=== PATIENT | male | born 1985 | race Caucasian/White ===

== ENCOUNTER 2025-03-25 14:53 | Emergency (ER) | payer SELFPAY ==
[~2025-03-25] VITALS: Ht 167.6 cm; Wt 69.0 kg
[2025-03-25 14:57] VITALS: O2SAT 98
[2025-03-25 15:54] LABS: BASOPHILS % 0.8 % (0.0-2.0); EOSINOPHILS % 1.2 % (0.0-5.0); HEMATOCRIT. 40.4 % (42.0-52.0); HEMOGLOBIN. 13.3 g/dL (14.0-18.0); LYMPHOCYTES % 35.0 % (20.0-50.0); MEAN PLATELET VOLUME 8.6 fl (7.4-10.4); MONOCYTES % 9.5 % (2.0-8.0); NEUTROPHILS % 53.5 % (40.0-76.0); PLATELET 294 x1000/uL (130-400); RED BLOOD CELL COUNT 4.57 mill/uL (4.7-6.1); RED CELL DISTRIBUTION WIDTH 13.9 % (11.6-14.6)
[2025-03-25 16:06] LABS: CREATININE 1.1 mg/dL (0.6-1.3); UREA NITROGEN BLOOD 13 mg/dL (9-23)
[2025-03-25 16:07] LABS: PROTEIN TOTAL 7.1 g/dL (6.0-8.3)
[2025-03-25 16:08] LABS: ASPARTATE AMINOTRANSFERASE 48 IU/L (<34)
[2025-03-25 16:09] LABS: BILIRUBIN DIRECT 0.2 mg/dL (<=3.0); BILIRUBIN TOTAL 0.6 mg/dL (0.1-1.0)
[2025-03-25] MEDS ORDERED: DOXY100T2 MT (17:54)
[2025-03-25 18:05] VITALS: BP 125/74; PULSE 90; RESP 16; TEMP 36.7; O2SAT 99
[2025-03-25] MEDS: DOXYCYCLINE HYCLATE 100MG CAPSULE PO ONE (18:05)
[2025-03-25] MEDS: CEFTRIAXONE SODIUM 500MG VIAL IM ONE (18:05)
[2025-03-25 18:12] LABS: GLUCOSE URINE NEGATIVE (NEGATIVE); KETONES URINE NEGATIVE (NEGATIVE); LEUKOCYTE ESTERASE URINE NEGATIVE (NEGATIVE); NITRITE URINE NEGATIVE (NEGATIVE); OCCULT BLOOD URINE NEGATIVE (NEGATIVE); PH URINE 7.5 (4.5-8.0); PROTEIN URINE NEGATIVE (NEGATIVE); SPECIFIC GRAVITY URINE 1.020 (1.005-1.030); UROBILINOGEN URINE 2.0 E.U./dL (0.2-1.0)
[2025-03-25 19:07] LABS: COLOR URINE STRAW (YELLOW)
[2025-03-25 19:21] LABS: CLARITY URINE SL HAZY (CLEAR)
[2025-03-25 19:22] LABS: RBC URINE NONE SEEN /hpf (0-2); WBC URINE NONE SEEN /hpf (0-2)
[2025-03-25 19:23] LABS: AMORPHOUS SEDIMENT URINE 2+ /lpf; BACTERIA URINE NONE SEEN; SQUAMOUS EPITHELIAL CELL URINE RARE /lpf (RARE/1+)
[2025-03-28 05:09] LABS: CHLAMYDIA TRACHOMATIS NAA Negative (Negative); NEISSERIA GONORRHOEAE NAA Negative (Negative)
== END 2025-03-25 18:17 | disposition home or self-care (01) ==
LOC: ER 14:53
DX: K62.89 Other specified diseases of anus and rectum (principal); Z79.899 Other long term (current) drug therapy
CPT/HCPCS: 99285; 74176; 87491; 87591; 80076; 80048; 81003; 85025; 36415; 93005; 96372; J0696